=== PATIENT | male | born 1935 | race Caucasian/White ===

== ENCOUNTER 2020-12-17 08:05 | Outpatient (CLI) | payer MEDICARE, SELFPAY ==
[2020-12-17] VITALS (9 sets, daily range): BP systolic 130–142; BP diastolic 66–88; PULSE 79–89; RESP 20; TEMP 36.9–37.2; O2SAT 90–93
== END 2020-12-17 10:45 | disposition home or self-care (01) ==
PROVIDERS: PCP Family Medicine; Visit Provider Family Medicine
DX: U07.1 COVID-19 (principal); Z23 Encounter for immunization
CPT/HCPCS: 96365